=== PATIENT | male | born 1980 | race Caucasian/White ===

== ENCOUNTER 2017-10-26 20:56 | Emergency (ER) | payer OTHER ==
[2017-10-26 21:12] VITALS: BP 129/69
[2017-10-26] MEDS ORDERED: ACETAMINOPHEN 325 MG TABLET PO STA (21:16)
[2017-10-26] MEDS ORDERED: DEXAMETHASONE 10 MG/ML VIAL PO STA (21:20)
--- NOTE | 2017-10-26 21:27 | ED Physician Documentation ---
History of Present Illness - Stated complaint Stated Complaint: FEVER/COUGH - Chief complaint Chief Complaint: General - History obtained from History obtained from: Patient, Family - History of Present Illness Timing: How many days ago (3) Pain level max: 4 Pain level now: 4 Improved by: rest Worsened by: movement - Additonal information Additional information: Patient is a 37-year-old male who presents to the emergency department with fevers, coughing, rhinorrhea congestion and sore throat for the past 3 days. Came on suddenly. He is originally from [place] but is been in the [place] for the past 10 years. He states no recent plane rides or international travel. Has been taking Robitussin at home for the cough. Review of Systems Ten Systems: 10 systems reviewed and negative Constitutional: reports: Fever, Chills, Myalgias Ears: denies: Ear pain Nose: reports: Rhinorrhea / runny nose, Congestion Throat: reports: Sore throat Cardiac: denies: Chest pain / pressure Respiratory: reports: Cough GI: denies: Abdominal Pain, Nausea, Vomiting, Diarrhea Skin: denies: Rash Musculoskeletal: denies: Neck pain, Back pain Neurologic: denies: Headache PD PAST MEDICAL HISTORY - Past Medical History Past Medical History: No - Past Surgical History Past Surgical History: No - Present Medications Home Medications: Ambulatory Orders Medication Instructions Recorded Confirmed Benzonatate [Tessalon Perle] 100 - 200 mg PO TID PRN #30 capsule 10/26/17 Cetirizine HCl/Pseudoephedrine 1 each PO BID PRN #30 tab.er.12h 10/26/17 [Zyrtec-D Tablet] Ibuprofen [Motrin] 800 mg PO Q8H PRN #30 tablet 10/26/17 - Allergies Allergies/Adverse Reactions: Allergies Allergy/AdvReac Type Severity Reaction Status Date / Time No Known Drug Allergies Allergy Verified 10/26/17 21:12 - Living Situation Living Situation: reports: With family Living Arrangement: reports: At home - Social History Does the pt smoke?: No Does the pt have substance abuse?: No PD ED PE NORMAL - Vitals Vital signs reviewed: Yes - General General: Alert and oriented X 3, No acute distress, Well developed/nourished - HEENT HEENT: PERRL, Ears normal, Moist mucous membranes, Other (Mild posterior pharyngeal erythema without tonsillar exudates. Uvula midline) - Neck Neck: Supple, no meningeal sign, No adenopathy - Cardiac Cardiac: RRR, Strong equal pulses - Respiratory Respiratory: No respiratory distress, Clear bilaterally - Abdomen Abdomen: Soft, Non tender, Non distended - Derm Derm: Warm and dry, No rash - Extremities Extremities: No calf tenderness / cord - Neuro Neuro: Alert and oriented X 3 - Psych Psych: Normal mood, Normal affect Results - Vitals Vitals: Vital Signs - 24 hr 10/26/17 10/26/17 10/26/17 21:08 21:42 22:14 Temperature 39.5 C H 39.1 C H Heart Rate 90 Respiratory 20 16 Rate Blood Pressure 129/69 O2 Saturation 100 Oxygen O2 Source Room air - Labs Labs: Laboratory Tests 10/26/17 10/26/17 21:30 21:30 Influenza A (Rapid) POSITIVE H Influenza B (Rapid) Negative Influenza Types A,B Ag + H Group A Strep Rapid Negative - Rads (name of study) cxr Radiology: Prelim report reviewed, EMP read contemporaneously, See rad report ( Mild bronchial wall thickening, possibly due to bronchitis or reactive airway disease) PD MEDICAL DECISION MAKING - ED course Complexity details: reviewed results, re-evaluated patient, considered differential, d/w patient ED course: Patient is a 37-year-old male who presents to the emergency department with influenza A. He is approximately 3 days into the illness. Treated with Tylenol and feels better. Will place on decongestants, Tessalon and Motrin/ Tylenol at home. We will continue supportive care. He is well-appearing, nontoxic. Tolerating p.o. without difficulty and ambulating without difficulty. Patient counseled regarding signs and symptoms for which I believe and urgent re-evaluation would be necessary. Patient with good understanding of and agreement to plan and is comfortable going home at this time This document was made in part using voice recognition software. While efforts are made to proofread this document, sound alike and grammatical errors may occur. Departure - Departure Disposition: 01 Home, Self Care Clinical Impression: Influenza A Condition: Good Instructions: ED Flu Follow-Up: SILVER APRAICIO [Primary Care Provider] - Within 1 week Prescriptions: Benzonatate [Tessalon Perle] 100 - 200 mg PO TID PRN #30 capsule PRN Reason: Cough Cetirizine HCl/Pseudoephedrine [Zyrtec-D Tablet] 1 each PO BID PRN #30 tab.er.12h PRN Reason: Nasal Congestion Ibuprofen [Motrin] 800 mg PO Q8H PRN #30 tablet PRN Reason: PAIN &/OR FEVER Comments: Drink plenty of fluid and rest. You have tested positive for influenza A. Forms: Activity restrictions Discharge Date/Time: 10/26/17 22:14
[2017-10-26] MEDS ORDERED: CHERRY SYRUP 10 ML UDC PO ONE (21:36)
[2017-10-26 21:45] LABS: RAPID STREP SCREEN REAGENT QC YELLOW (YELLOW)
--- NOTE | 2017-10-26 22:12 | XRAY Preliminary Report ---
Exam: XR CHEST 2 VIEW PA/LAT IMPRESSION: 1. Mild bronchial wall thickening, possibly due to bronchitis or reactive airways disease. [facility] SITE ID: [id number]
--- NOTE | 2017-10-26 22:14 | XRAY Report ---
EXAM: CHEST RADIOGRAPHY EXAM DATE: 10/26/2017 09:56 PM. CLINICAL HISTORY: Cough, fever. COMPARISON: None. TECHNIQUE: 2 views. FINDINGS: Lungs/Pleura: No alveolar consolidation or pleural effusion. Mild bronchial wall thickening. No pneum othorax. Mediastinum: Heart and mediastinal contours are unremarkable. Other: None. IMPRESSION: 1. Mild bronchial wall thickening, possibly due to bronchitis or reactive airways disease. [facility] Referring Provider Line: [phone] SITE ID: [id number]
== END 2017-10-26 22:14 | disposition home or self-care (01) ==
LOC: ED 20:56
DX: J10.1 Influenza due to other identified influenza virus with other respiratory manifestations (principal)
CPT/HCPCS: 71020; 87070; 87275; 87276; 87430; 99283; 99284; A9270